=== PATIENT | male | born 1970 | race Caucasian/White ===

== ENCOUNTER 2017-09-10 08:54 | Day surgery (SDC) | payer OTHER ==
[2017-09-03 16:05] VITALS: BMI 25.0
[2017-09-10] MEDS ORDERED: ONDANSETRON 4 MG/2 ML VIAL ONE ×2 (10:17→13:56)
[2017-09-10] MEDS ORDERED: PROPOFOL 20 ML ONE (10:17)
[2017-09-10] MEDS ORDERED: DEXAMETHASONE SOD PHOSPHATE 4 MG/1 ML VIAL ONE (10:17)
[2017-09-10] MEDS ORDERED: LIDOCAINE HCL 2% 100 MG/5 ML DISP.SYRIN ONE (10:17)
[2017-09-10] MEDS ORDERED: MIDAZOLAM HCL 2 MG/2 ML SINGLE DOSE VIAL ONE (11:13)
[2017-09-10] MEDS ORDERED: ROPIVACAINE HCL 0.5% 30ML VIAL ONE (11:13)
[2017-09-10] MEDS ORDERED: DEXAMETHASONE SOD PHOSPHATE/PF 10 MG/ML SDV ONE (11:13)
--- NOTE | 2017-09-10 11:15 | SURG ---
Surgery Blockers Skiver Note Blockers Skiver: Murali Mercado PA-C Date of Service: 09/10/17 Diagnosis: RIGHT KNEE MMT/ ACL TEAR Procedure: Right knee arthroscopy, partial medial meniscectomy, ACL reconstruction with allograft I was present for the entirety of the operative procedure. For further detail, please refer to operative report. Visit type - Case Type Case Type: Scheduled Admission - New patient This patient is new to me today: Yes Date on this admission: 09/10/17
[2017-09-10] MEDS ORDERED: VANCOMYCIN 1,000 MG VIAL (RESTRICTED TO ID ONLY) ONE (11:23)
[2017-09-10] MEDS ORDERED: BUPIVACAINE HCL/EPINEPHRINE/PF 30 ML VIAL IJ ONE (11:23)
[2017-09-10] MEDS ORDERED: ceFAZolin SODIUM 1 GM VIAL ONE (11:53)
[2017-09-10] MEDS ORDERED: ETOMIDATE 20 MG/10 ML AMPUL IVPUSH ONE (12:00)
[2017-09-10] MEDS ORDERED: TRANEXAMIC ACID 1000 MG/10 ML VIAL ONE (12:06)
[2017-09-10] MEDS ORDERED: oxyCODONE HCL 5 MG TABLET PO PRN ×2 (12:38)
[2017-09-10] MEDS ORDERED: ONDANSETRON 4 MG/2 ML VIAL IVPUSH PRN (12:38)
[2017-09-10] MEDS ORDERED: LACTATED RINGERS SOLUTION 1,000 ML IV SCH (12:45)
--- NOTE | 2017-09-10 13:21 | DS ---
Physical Examination Vital Signs: Vital Signs Temperature 98.5 F 09/10/17 09:19 Pulse Rate 96 H 09/10/17 09:19 Respiratory Rate 16 09/10/17 09:19 Blood Pressure 134/82 09/10/17 09:19 O2 Sat by Pulse Oximetry (%) 100 09/10/17 09:26 Discharge Summary Reason For Visit: ACL TEAR, RIGHT KNEE Condition: Good - Instructions Diet, Activity, Other Instructions: Post Operative Instructions: ACL Reconstruction Dr. David Gross 1. Pain following an ACL reconstruction is variable and can be significant. Some patients will have more pain than others. You have been provided with a prescription for medication that contains a narcotic. You are not allowed to drive while on this medication. Feel free to take medications such as Ibuprofen or Naprosyn in addition to the pain medicine if you do not have any problems with the NSAID class of medications. YOU SHOULD TAKE 81 MG OF ASPIRIN TWICE A DAY, STARTING TONIGHT TO MINIMIZE THE RISKS OF BLOOD CLOTS. 2. You should not remove the bandages for 48 hours. Please do not pick at the glue. You may shower at that point. You are not allowed to bathe or go swimming until the sutures are removed. Put band-aids on the incisions after your shower and do not put any creams or lotions over the incisions. 3. You are allowed to put all your weight on the leg and bend your knee, however , you should use crutches for assistance unless directed otherwise. 4. Getting the knee straight is your most important goal during the first 72 hours following an ACL reconstruction. Try not to lie down with a pillow under your knee. Instead the pillow should be under your ankle, thus allowing you to push your knee straight down into the bed. This is a very important milestone to achieve before your first post-surgery visit with me. 5. Swelling around the knee is normal following an ACL reconstruction. 6. The area around the knee and along the front of your guthrie will also become swollen and black and blue. 7. Apply ice to the knee for 15 min every hour or so. You may continue this for as many days as you like. 8. Please call the office to schedule a visit to have your sutures removed. 9. If for any reason you believe you may have an infection or are concerned, please feel free to call me. I can be reached through our office number 24 hours a day. 10. Please call our office with any questions; we will review the surgical findings during your post operative visit. Disposition: HOME - Home Medications Comprehensive Discharge Medication List: Ambulatory Orders NK [No Known Home Medication] 09/03/17
--- NOTE | 2017-09-10 13:21 | OP ---
Operative Note - Note: Operative Date: 09/10/17 Pre-Operative Diagnosis: RIGHT KNEE MMT/ ACL TEAR Operation: RKA, PMM, ACLR Post-Operative Diagnosis: Same as Pre-op Surgeon: David Gross [employer] Compliance Manager: Murali Mercado Anesthesiologist/PLANOGRAPH OPERATOR: Oscar Malloy Anesthesia: General Operative Report Dictated: Yes
[2017-09-10] MEDS ORDERED: ONDANSETRON 4 MG/2 ML VIAL IVPUSH ONE (14:04)
[2017-09-10] MEDS ORDERED: oxyCODONE HCL 5 MG TABLET ONE (15:13)
[2017-09-10 16:41] VITALS: BP 140/68; PULSE 83; TEMP 97.6
--- NOTE | 2017-09-15 09:39 | PATH ---
Surgical Pathology Report Patient Name: EMMANUEL GONZALEZ [facility]. Rec. #: [id number] /Age/Gender: 1970 (Age: 47) / M Account: [id number] Location: [facility] Taken: 09/10/2017 Received: 09/10/2017 Reported: 09/15/2017 Physicians: David Gross M.D. Specimen(s) Received SHAVINGS RIGHT KNEE Clinical History ACL tear right knee Final Diagnosis RIGHT KNEE, ARTHOSCOPIC SHAVINGS: FIBROCARTILAGE WITH MYXOID DEGENERATIVE CHANGES, ALONG WITH PORTIONS OF BONE AND SYNOVIUM. Electronically Signed Emmanuel Loredo M.D. Gross Description Received in formalin, labeled "shavings right knee," is a 3.0 x 1.5 x 0.2 cm. aggregate of fitch-yellow soft tissue fragments. The formalin is filtered and the specimen is entirely submitted in one cassette.. /09/13/2017 saudi09/13/2017
== END 2017-09-10 16:10 | disposition home or self-care (01) ==
LOC: FASU 08:54
PROVIDERS: ATTEND Orthopaedic Surgery
PROC: 0SBC4ZZ Excision of Right Knee Joint, Percutaneous Endoscopic Approach (ICD-10-PCS; 2017-09-10)
PROC: 0MQN4ZZ Repair Right Knee Bursa and Ligament, Percutaneous Endoscopic Approach (ICD-10-PCS; principal; 2017-09-10 12:24)
DX: S83.511A Sprain of anterior cruciate ligament of right knee, initial encounter (principal); S83.241A Other tear of medial meniscus, current injury, right knee, initial encounter; X58.XXXA Exposure to other specified factors, initial encounter; Y93.9 Activity, unspecified; Y92.9 Unspecified place or not applicable
CPT/HCPCS: 94760